=== PATIENT | male | born 1960 | race Caucasian/White ===

== ENCOUNTER 2017-12-25 13:45 | Inpatient (IN) | payer MEDICARE, OTHER ==
[~2017-12-25] VITALS: Ht 172.7 cm; Wt 100.2 kg
[~2017-12-25 13:45] MED LIST: ASPI1POW MC; CLON-570 PO; HYDR-4455 PO; SIMV5TAB6 PO
[2017-12-25] MEDS ORDERED: CARV6 PO (14:12)
[2017-12-25] MEDS ORDERED: FURO20 PO (14:12)
[2017-12-25] MEDS ORDERED: METO-558 PO (14:12)
[2017-12-25 15:03] LABS: BASOPHILS % (AUTO) 0.8 % (0.0-2.0); EOSINOPHILS % (AUTO) 0.2 % (1.0-6.0); HEMATOCRIT 40.2 % (41-53); HEMOGLOBIN 12.9 g/dL (13.5-17.5); LYMPHOCYTES # (AUTO) 1.8 K/uL (1.0-4.8); LYMPHOCYTES % (AUTO) 19.1 % (22.0-44.0); MEAN CORPUSCULAR HGB CONC 32.2 G/dL (31.0-37.0); MEAN CORPUSCULAR VOLUME 87 fL (80-100); MONOCYTES # (AUTO) 0.8 K/uL (0.1-1.0); NEUTROPHILS # (AUTO) 6.9 K/uL (1.8-7.7); NEUTROPHILS % (AUTO) 71.9 % (40.0-70.0); PLATELET COUNT (AUTO) 223 K/uL (150-450); RED BLOOD CELL COUNT(AUTO) 4.61 MIL/uL (4.50-5.90); RED CELL DISTRIBUTION WIDTH 19.8 % (11.5-14.5)
[2017-12-25 15:23] LABS: ALANINE AMINOTRANSFERASE 24 U/L (12-78); ALBUMIN 2.6 g/dL (3.4-5.0); ALKALINE PHOSPHATASE 120 U/L (46-116); ANION GAP 10 mmol/L (8-16); ASPARTATE AMINOTRANSFERASE 31 U/L (15-37); BILIRUBIN,TOTAL 2.3 mg/dL (0.1-1.0); CALCIUM, TOTAL 7.7 mg/dL (8.8-10.5); CARBON DIOXIDE 34 mmol/L (22-29); CHLORIDE 103 mmol/L (98-107); CREATININE 0.98 mg/dL (0.60-1.30); GLOMERULAR FILTR. RATE CALC > 60 mL/min (>60); GLUCOSE,RANDOM 95 mg/dL (70-110); SODIUM SERUM 147 mmol/L (136-145); TOTAL PROTEIN, SERUM 6.7 g/dL (6.4-8.2); UREA NITROGEN, BLOOD 17 mg/dL (7-18)
[2017-12-25 15:26] LABS: POTASSIUM 2.1 mmol/L (3.5-5.1)
[2017-12-25] MEDS ORDERED: DIAZEPAM 5 MG/ML 2 ML SYRINGE IVP ONE (15:30)
[2017-12-25] MEDS ORDERED: POTASSIUM CHLORIDE 20 MEQ ER TABLET PO PRN (15:45)
[2017-12-25] MEDS ORDERED: MAGNESIUM SULFATE 4 GM/WATER 100 ML IV PRN (15:45)
[2017-12-25] MEDS ORDERED: MAGNESIUM SULFATE 2 GM/WATER 50 ML IV PRN (15:45)
[2017-12-25] MEDS ORDERED: MAGNESIUM OXIDE 400 MG TABLET PO PRN (15:45)
[2017-12-25 15:50] LABS: INR 1.3 (0.9-1.1); PROTHROMBIN TIME 13.6 SEC (9.4-11.6)
[2017-12-25 16:04] LABS: AMPHET/METH SCREEN,URINE NEGATIVE (NEGATIVE); BARBITURATE SCREEN, URINE NEGATIVE (NEGATIVE); BENZODIAZEPINES SCREEN,URINE NEGATIVE (NEGATIVE); CANNABINOID SCREEN,URINE NEGATIVE (NEGATIVE); COCAINE SCREEN,URINE NEGATIVE (NEGATIVE); METHADONE SCREEN, URINE NEGATIVE (NEGATIVE); OPIATE SCREEN,URINE POSITIVE (NEGATIVE)
[2017-12-25 16:06] LABS: PHENCYCLIDINE SCREEN,URINE NEGATIVE (NEGATIVE)
[2017-12-25 16:15] LABS: B-TYPE NATRIURETIC PEPTIDE 1890 pg/mL (0-100)
[2017-12-25] MEDS: POTASSIUM CHL 10 MEQ/WATER 50 ML IV SCH ×4 (17:04→21:50)
[2017-12-25] MEDS: MULTIVITAMINS WITH MINERALS, THERAPEUTIC TABLET PO SCH (17:04)
[2017-12-25] MEDS: PANTOPRAZOLE SODIUM 40 MG DR TABLET PO SCH (17:04)
[2017-12-25] MEDS ORDERED: SODIUM CHLORIDE 0.9% 250 ML IV ONE ×2 (19:23→21:38)
[2017-12-25 20:55] VITALS: BP 142/98
[2017-12-25] MEDS: DOCUSATE SODIUM 100 MG CAPSULE PO SCH (21:00)
[2017-12-25] MEDS: ACETAMINOPHEN 325 MG TABLET PO PRN (21:20)
[2017-12-25] MEDS: LORazepam 2 MG/ML VIAL IVP PRN (21:21)
[2017-12-25] MEDS: ONDANSETRON HCL 4 MG/2 ML VIAL IVP PRN (21:26)
[2017-12-25 23:30] VITALS: BP 135/93
[2017-12-26] VITALS (11 sets, daily range): BP systolic 102–151; BP diastolic 33–85
[2017-12-26] MEDS: LORazepam 2 MG/ML VIAL IVP PRN ×3 (01:58→10:32)
[2017-12-26] MEDS ORDERED: DILTIAZEM HCL 125 MG in DEXTROSE 5%-WATER 100 ML IV SCH ×4 (02:30)
[2017-12-26] MEDS: DILTIAZEM HCL 125 MG in DEXTROSE 5%-WATER 100 ML IV PRN ×2 (03:38→10:41)
[2017-12-26] MEDS ORDERED: AMIODARONE HCL 150 MG in DEXTROSE 5%-WATER 97 ML IV ONE (04:45)
[2017-12-26] MEDS ORDERED: AMIODARONE HCL 360 MG in DEXTROSE 5%-WATER 242.8 ML IV ONE (05:00)
[2017-12-26 07:28] LABS: MAGNESIUM 1.1 mg/dL (1.80-2.40)
[2017-12-26 07:35] LABS: POTASSIUM 2.4 mmol/L (3.5-5.1)
[2017-12-26] MEDS: POTASSIUM CHL 10 MEQ/WATER 50 ML IV PRN ×4 (07:41→11:04)
[2017-12-26] MEDS ORDERED: 0.9% SODIUM CHLORIDE 5 ML NEB SOLUTION NEB ONE (08:01)
[2017-12-26] MEDS: ALBUTEROL SULFATE 2.5 MG/0.5 ML NEB SOLUTION NEB PRN (08:03)
[2017-12-26] MEDS ORDERED: FUROSEMIDE 20 MG TABLET PO SCH (09:00)
[2017-12-26] MEDS ORDERED: METOPROLOL SUCCINATE 50 MG ER TABLET PO SCH (09:00)
[2017-12-26 09:15] LABS: ABG A-A DIFF O2 97.2 mmHg (10-20.0); ABG BASE EXCESS 9.1 mmol/L (-2.0-3.0); ABG CARBOXYHEMOGLOBIN 2.2 % (0.0-1.5); ABG HCO3 31.9 mmol/L (22.0-26.0); ABG METHEMOGLOBIN 0.2 % (0.0-1.5); ABG OXYGEN CONTENT 17.1 mL/dL (15.0-23.0); ABG OXYGEN SATURATION 95.6 % (95.0-98.0); ABG OXYHEMOGLOBIN 93.3 % (94.0-100.0); ABG PCO2 44 mmHg (35-45); ABG PH 7.484 (7.35-7.450); O2 DEVICE,BLOOD GAS CANNULA (ROOM AIR); PO2, ARTERIAL BG 79.1 mmHg (84.0-92.0); SITE, BLOOD GAS RT RADIAL; SOURCE, BLOOD GAS ARTERIAL; TEMPERATURE, FAHRENHEIT, BG 98.6 FAHREN (96.0-98.6)
[2017-12-26] MEDS ORDERED: FUROSEMIDE 40 MG/4 ML VIAL IVP SCH ×2 (09:15→21:00)
[2017-12-26] MEDS: PANTOPRAZOLE SODIUM 40 MG DR TABLET PO SCH (09:50)
[2017-12-26] MEDS: DOCUSATE SODIUM 100 MG CAPSULE PO SCH ×2 (09:50→21:13)
[2017-12-26] MEDS: CARVEDILOL 6.25 MG TABLET PO SCH (09:50)
[2017-12-26] MEDS ORDERED: MethylPREDNISolone SOD SUCC 40 MG/ML VIAL ONE (09:54)
[2017-12-26] MEDS: MULTIVITAMINS WITH MINERALS, THERAPEUTIC TABLET PO SCH (10:32)
[2017-12-26] MEDS: ACETAMINOPHEN 325 MG TABLET PO PRN (10:32)
[2017-12-26] MEDS ORDERED: MethylPREDNISolone SOD SUCC 125 MG/2 ML VIAL IVP SCH (10:44)
[2017-12-26] MEDS ORDERED: MethylPREDNISolone SOD SUCC 40 MG/ML VIAL IVP ONE (11:00)
[2017-12-26] MEDS ORDERED: AMIODARONE HCL 540 MG in DEXTROSE 5%-WATER 239.2 ML IV ONE (11:00)
[2017-12-26] MEDS ORDERED: PHENYLEPHRINE 200 MG/D5%-WATER 250 ML IV PRN (13:00)
[2017-12-26] MEDS ORDERED: LORazepam 2 MG/ML VIAL IVP PRN (13:30)
[2017-12-26 14:23] LABS: CALCIUM, TOTAL 7.5 mg/dL (8.8-10.5); CREATININE 1.33 mg/dL (0.60-1.30); MAGNESIUM 1.7 mg/dL (1.80-2.40); POTASSIUM 3.2 mmol/L (3.5-5.1)
[2017-12-26] MEDS ORDERED: ChlordiazePOXIDE HCL 25 MG CAPSULE PO SCH (16:00)
[2017-12-26] MEDS: ALBUMIN HUMAN 25%-25GM/100ML 100 ML IV SCH (17:13)
[2017-12-26] MEDS: MethylPREDNISolone SOD SUCC 125 MG/2 ML VIAL IVP SCH ×2 (17:13→23:51)
[2017-12-26] MEDS: POTASSIUM CHL 10 MEQ/WATER 50 ML IV SCH ×4 (17:14→20:13)
[2017-12-26] MEDS ORDERED: DIGOXIN 250 MCG/ML 2 ML AMP IVP ONE (17:30)
[2017-12-26 18:20] LABS: CREATININE,URINE RANDOM 53.6 mg/dL (30.0-125.0)
[2017-12-26] MEDS: BUMETANIDE 0.25 MG/ML 4 ML VIAL IVP SCH (21:13)
[2017-12-26] MEDS: APIXABAN 5 MG TABLET PO SCH (21:13)
[2017-12-26] MEDS: ChlordiazePOXIDE HCL 25 MG CAPSULE PO PRN (21:56)
[2017-12-26 22:54] LABS: CALCIUM, TOTAL 7.6 mg/dL (8.8-10.5); CREATININE 1.66 mg/dL (0.60-1.30); POTASSIUM 3.8 mmol/L (3.5-5.1)
[2017-12-27] VITALS (7 sets, daily range): BP systolic 99–116; BP diastolic 59–88
[2017-12-27] MEDS: ChlordiazePOXIDE HCL 25 MG CAPSULE PO PRN ×3 (05:15→23:22)
[2017-12-27] MEDS: ALBUMIN HUMAN 25%-25GM/100ML 100 ML IV SCH ×2 (05:15→16:18)
[2017-12-27] MEDS: AMIODARONE HCL 750 MG in DEXTROSE 5%-WATER 485 ML IV SCH (05:23)
[2017-12-27] MEDS: MethylPREDNISolone SOD SUCC 125 MG/2 ML VIAL IVP SCH ×3 (05:33→23:22)
[2017-12-27 05:36] LABS: MAGNESIUM 1.9 mg/dL (1.80-2.40)
[2017-12-27] MEDS: ALBUTEROL SULFATE 2.5 MG/0.5 ML NEB SOLUTION NEB PRN (08:00)
[2017-12-27] MEDS: ChlordiazePOXIDE HCL 25 MG CAPSULE PO SCH ×4 (08:00→20:03)
[2017-12-27] MEDS: APIXABAN 5 MG TABLET PO SCH (08:50)
[2017-12-27] MEDS: BUMETANIDE 0.25 MG/ML 4 ML VIAL IVP SCH (08:50)
[2017-12-27] MEDS: CARVEDILOL 6.25 MG TABLET PO SCH (08:50)
[2017-12-27] MEDS: PANTOPRAZOLE SODIUM 40 MG DR TABLET PO SCH (08:51)
[2017-12-27] MEDS: MULTIVITAMINS WITH MINERALS, THERAPEUTIC TABLET PO SCH (08:51)
[2017-12-27] MEDS: DOCUSATE SODIUM 100 MG CAPSULE PO SCH ×2 (08:51→20:03)
[2017-12-27] MEDS ORDERED: SODIUM CHLORIDE 0.9% 1,000 ML IV SCH (10:15)
[2017-12-27 10:20] LABS: BILIRUBIN,TOTAL 4.3 mg/dL (0.1-1.0); CALCIUM, TOTAL 7.5 mg/dL (8.8-10.5); CREATININE 1.93 mg/dL (0.60-1.30); TOTAL PROTEIN, SERUM 6.8 g/dL (6.4-8.2)
[2017-12-27] MEDS ORDERED: HEPARIN SODIUM,PORCINE 1,000 UNITS/ML VIAL IVP ONE (12:45)
[2017-12-27] MEDS ORDERED: HEPARIN SODIUM,PORCINE 1,000 UNITS/ML VIAL IV ONE (12:45)
[2017-12-27] MEDS ORDERED: HEPARIN SODIUM,PORCINE 5,000 UNITS/ML VIAL ONE (12:47)
[2017-12-27] MEDS ORDERED: MORPHINE SULFATE 2 MG/ML SYRINGE IVP ONE (13:00)
[2017-12-27] MEDS ORDERED: SODIUM CHLORIDE 0.9% 500 ML IV ONE (13:55)
[2017-12-27] MEDS: ONDANSETRON HCL 4 MG/2 ML VIAL IVP PRN (18:55)
[2017-12-27] MEDS: ACETAMINOPHEN 325 MG TABLET PO PRN (20:03)
[2017-12-27] MEDS: APIXABAN 2.5 MG TABLET PO SCH (20:03)
[2017-12-28] VITALS (7 sets, daily range): BP systolic 105–150; BP diastolic 77–96
[2017-12-28 04:34] LABS: BASOPHILS % (AUTO) 0.3 % (0.0-2.0); EOSINOPHILS % (AUTO) 0 % (1.0-6.0); HEMATOCRIT 40.9 % (41-53); HEMOGLOBIN 13.1 g/dL (13.5-17.5); LYMPHOCYTES # (AUTO) 1.3 K/uL (1.0-4.8); LYMPHOCYTES % (AUTO) 8.4 % (22.0-44.0); MEAN CORPUSCULAR HEMOGLOBIN 28.3 pg (26.0-34.0); MEAN CORPUSCULAR HGB CONC 32.1 G/dL (31.0-37.0); MEAN CORPUSCULAR VOLUME 88 fL (80-100); MONOCYTES # (AUTO) 0.4 K/uL (0.1-1.0); MONOCYTES % (AUTO) 2.7 % (2.0-9.0); NEUTROPHILS # (AUTO) 14.1 K/uL (1.8-7.7); PLATELET COUNT (AUTO) 230 K/uL (150-450); RED BLOOD CELL COUNT(AUTO) 4.63 MIL/uL (4.50-5.90); RED CELL DISTRIBUTION WIDTH 19.7 % (11.5-14.5)
[2017-12-28 04:36] LABS: NEUTROPHILS % (AUTO) 88.6 % (40.0-70.0)
[2017-12-28] MEDS: ChlordiazePOXIDE HCL 25 MG CAPSULE PO PRN (04:37)
[2017-12-28] MEDS: ALBUMIN HUMAN 25%-25GM/100ML 100 ML IV SCH (04:38)
[2017-12-28] MEDS: AMIODARONE HCL 750 MG in DEXTROSE 5%-WATER 485 ML IV SCH (04:39)
[2017-12-28 04:51] LABS: ALBUMIN 3.5 g/dL (3.4-5.0); BILIRUBIN,TOTAL 4.2 mg/dL (0.1-1.0); CALCIUM, TOTAL 7.5 mg/dL (8.8-10.5); CREATININE 2.39 mg/dL (0.60-1.30); DIGOXIN 0.43 ng/mL (0.90-2.00); POTASSIUM 3.8 mmol/L (3.5-5.1); TOTAL PROTEIN, SERUM 6.7 g/dL (6.4-8.2)
[2017-12-28 04:59] LABS: PLATELET MORPHOLOGY COMMENT LARGE PLTS PRESENT
[2017-12-28] MEDS ORDERED: SODIUM CHLORIDE 0.9% 250 ML IV ONE (05:15)
[2017-12-28] MEDS: PANTOPRAZOLE SODIUM 40 MG DR TABLET PO SCH (08:21)
[2017-12-28] MEDS: CARVEDILOL 6.25 MG TABLET PO SCH (08:21)
[2017-12-28] MEDS: MethylPREDNISolone SOD SUCC 125 MG/2 ML VIAL IVP SCH ×3 (08:21→23:29)
[2017-12-28] MEDS: ChlordiazePOXIDE HCL 25 MG CAPSULE PO SCH ×4 (08:21→19:43)
[2017-12-28] MEDS: MULTIVITAMINS WITH MINERALS, THERAPEUTIC TABLET PO SCH (08:22)
[2017-12-28] MEDS: APIXABAN 2.5 MG TABLET PO SCH ×2 (08:22→19:42)
[2017-12-28] MEDS: DOCUSATE SODIUM 100 MG CAPSULE PO SCH ×2 (08:22→19:42)
[2017-12-28] MEDS ORDERED: DIGOXIN 250 MCG/ML 2 ML AMP IVP ONE (09:30)
[2017-12-28] MEDS: AMIODARONE HCL 200 MG TABLET PO SCH ×2 (09:44→16:00)
[2017-12-28] MEDS: LORazepam 2 MG/ML VIAL IVP PRN ×2 (15:35→19:43)
[2017-12-29 05:00] VITALS: BP 113/86
[2017-12-29 06:35] LABS: CALCIUM, TOTAL 7.5 mg/dL (8.8-10.5); CREATININE 1.98 mg/dL (0.60-1.30); POTASSIUM 3.6 mmol/L (3.5-5.1)
[2017-12-29] MEDS ORDERED: ChlordiazePOXIDE HCL 10 MG CAPSULE PO PRN (07:00)
[2017-12-29 07:58] VITALS: BP 118/88
[2017-12-29] MEDS: MethylPREDNISolone SOD SUCC 125 MG/2 ML VIAL IVP SCH ×3 (08:00→22:51)
[2017-12-29] MEDS ORDERED: ChlordiazePOXIDE HCL 10 MG CAPSULE PO SCH (09:00)
[2017-12-29] MEDS: DOCUSATE SODIUM 100 MG CAPSULE PO SCH ×2 (09:00→20:40)
[2017-12-29] MEDS: APIXABAN 2.5 MG TABLET PO SCH ×2 (09:00→20:41)
[2017-12-29] MEDS: PANTOPRAZOLE SODIUM 40 MG DR TABLET PO SCH (09:24)
[2017-12-29] MEDS: CARVEDILOL 6.25 MG TABLET PO SCH (09:24)
[2017-12-29] MEDS: MULTIVITAMINS WITH MINERALS, THERAPEUTIC TABLET PO SCH (09:24)
[2017-12-29] MEDS: AMIODARONE HCL 200 MG TABLET PO SCH ×4 (09:24→22:54)
[2017-12-29 11:39] VITALS: BP 122/82
[2017-12-29] MEDS ORDERED: SODIUM CHLORIDE 0.9% 1,000 ML IV ONE (12:59)
[2017-12-29] MEDS ORDERED: HEPARIN SODIUM,PORCINE 1,000 UNITS/ML VIAL IVP ONE ×2 (17:15)
[2017-12-29] MEDS: NICOTINE 21 MG/24 HOUR PATCH TD SCH (17:54)
[2017-12-29] MEDS: ACETAMINOPHEN 325 MG TABLET PO PRN ×2 (18:09→22:54)
[2017-12-29 18:24] VITALS: BP 115/80
[2017-12-29] MEDS: LORazepam 2 MG/ML VIAL IVP PRN ×2 (18:45→22:50)
[2017-12-29 20:06] VITALS: BP 111/78
[2017-12-29 23:00] VITALS: BP 119/5
[2017-12-30 00:04] VITALS: BP 127/87
[2017-12-30 04:30] VITALS: BP 126/94
[2017-12-30] MEDS: LORazepam 2 MG/ML VIAL IVP PRN ×4 (05:29→22:16)
[2017-12-30 06:13] LABS: CALCIUM, TOTAL 8.2 mg/dL (8.8-10.5); CREATININE 1.75 mg/dL (0.60-1.30); POTASSIUM 3.9 mmol/L (3.5-5.1)
[2017-12-30] MEDS ORDERED: ChlordiazePOXIDE HCL 10 MG CAPSULE PO PRN (07:00)
[2017-12-30 07:28] VITALS: BP 136/94
[2017-12-30] MEDS: CARVEDILOL 6.25 MG TABLET PO SCH (08:42)
[2017-12-30] MEDS: MethylPREDNISolone SOD SUCC 125 MG/2 ML VIAL IVP SCH ×2 (08:42→15:54)
[2017-12-30] MEDS: AMIODARONE HCL 200 MG TABLET PO SCH ×2 (08:42→15:55)
[2017-12-30] MEDS: MULTIVITAMINS WITH MINERALS, THERAPEUTIC TABLET PO SCH (08:43)
[2017-12-30] MEDS: PANTOPRAZOLE SODIUM 40 MG DR TABLET PO SCH (08:43)
[2017-12-30] MEDS: DOCUSATE SODIUM 100 MG CAPSULE PO SCH ×2 (08:43→21:23)
[2017-12-30] MEDS: APIXABAN 2.5 MG TABLET PO SCH ×2 (08:44→21:23)
[2017-12-30] MEDS: NICOTINE 21 MG/24 HOUR PATCH TD SCH (08:44)
[2017-12-30 11:13] VITALS: BP 127/90
[2017-12-30 12:08] LABS: ALPHA-1 (IFE & PEP) 0.3 g/dL (0.0-0.4); GAMMA GLOBULINS (IFE & ELP) 0.7 g/dL (0.4-1.8); IGM (IMMUNOFIXATION) 65 mg/dL (20-172)
[2017-12-30] MEDS: ACETAMINOPHEN 325 MG TABLET PO PRN ×2 (13:17→21:23)
[2017-12-30 13:35] LABS: BILIRUBIN,URINE PRELIM. POSITIVE (NEGATIVE); GLUCOSE, URINE (UA) 100 mg/dL (NEGATIVE); KETONES,URINE TRACE mg/dL (NEGATIVE); LEUKOCYTE ESTERASE ,URINE LARGE (NEGATIVE); NITRATE,URINE POSITIVE (NEGATIVE); OCCULT BLOOD,URINE LARGE (NEGATIVE); PH,URINE 8.5 (5.0-8.0); PROTEIN,URINE SEE CONFIRM (NEGATIVE)
[2017-12-30 13:36] LABS: APPEARANCE,URINE TURBID (CLEAR); SULFOSALICYLIC ACID,URINE 3+ (Negative)
[2017-12-30 13:37] LABS: BACTERIA,URINE Many /HPF (None Seen); TRIPLE PHOSPHATE CRYSTAL,UR Many /LPF (None Seen)
[2017-12-30 15:02] VITALS: BP 119/78
[2017-12-30] MEDS ORDERED: HEPARIN SODIUM,PORCINE 1,000 UNITS/ML VIAL IVP ONE ×2 (16:37→16:46)
[2017-12-30] MEDS: CefTRIAXone SODIUM 1 GM in DEXTROSE 5%-WATER 10 ML IV SCH (19:49)
[2017-12-30 20:05] VITALS: BP 137/92
[2017-12-31 00:10] VITALS: BP 137/99
[2017-12-31] MEDS: LORazepam 2 MG/ML VIAL IVP PRN ×2 (03:31→08:21)
[2017-12-31 04:10] VITALS: BP 140/100
[2017-12-31] MEDS ORDERED: DIGOXIN 250 MCG/ML 2 ML AMP IVP ONE (08:00)
[2017-12-31] MEDS: APIXABAN 2.5 MG TABLET PO SCH ×2 (08:17→20:56)
[2017-12-31] MEDS: MULTIVITAMINS WITH MINERALS, THERAPEUTIC TABLET PO SCH (08:17)
[2017-12-31] MEDS: PANTOPRAZOLE SODIUM 40 MG DR TABLET PO SCH (08:17)
[2017-12-31] MEDS: NICOTINE 21 MG/24 HOUR PATCH TD SCH (08:17)
[2017-12-31] MEDS: DOCUSATE SODIUM 100 MG CAPSULE PO SCH ×2 (08:18→20:56)
[2017-12-31] MEDS: MethylPREDNISolone SOD SUCC 125 MG/2 ML VIAL IVP SCH ×4 (08:32→23:58)
[2017-12-31] MEDS: AMIODARONE HCL 200 MG TABLET PO SCH ×4 (08:36→23:57)
[2017-12-31] MEDS: CARVEDILOL 12.5 MG TABLET PO SCH (08:36)
[2017-12-31 08:39] VITALS: BP 156/128
[2017-12-31 09:33] LABS: CALCIUM, TOTAL 8.6 mg/dL (8.8-10.5); CREATININE 1.77 mg/dL (0.60-1.30); POTASSIUM 4.2 mmol/L (3.5-5.1)
[2017-12-31 11:01] VITALS: BP 132/90
[2017-12-31] MEDS ORDERED: SODIUM CHLORIDE 0.9% 250 ML IV ONE (14:01)
[2017-12-31 14:55] VITALS: BP 139/108
[2017-12-31] MEDS ORDERED: DEXTROSE 50%-WATER 25 GM/50 ML SYRINGE IVP PRN (17:15)
[2017-12-31] MEDS ORDERED: GuaiFENesin/D-METHORPHAN [SUGAR-FREE] 200-20MG/10 ML SYRUP UDCUP PO PRN (17:15)
[2017-12-31] MEDS: CefTRIAXone SODIUM 1 GM in DEXTROSE 5%-WATER 10 ML IV SCH (17:37)
[2017-12-31 20:04] VITALS: BP 149/115
[2017-12-31 20:58] LABS: GLUCOMETER DEV NAME(LOC) 5N 1P; GLUCOSE,POINT OF CARE 329 MG/DL (70-110)
[2017-12-31] MEDS: INSULIN LISPRO 100 UNITS/ML SQ PRN (20:58)
[2018-01-01] VITALS (7 sets, daily range): BP systolic 133–148; BP diastolic 88–108
[2018-01-01] MEDS: LORazepam 2 MG/ML VIAL IVP PRN ×3 (01:27→23:10)
[2018-01-01 05:39] LABS: GLUCOMETER DEV NAME(LOC) 5S 1M; GLUCOSE,POINT OF CARE 262 MG/DL (70-110)
[2018-01-01] MEDS: INSULIN LISPRO 100 UNITS/ML SQ PRN ×3 (05:58→21:15)
[2018-01-01 06:13] LABS: BASOPHILS % (AUTO) 0.2 % (0.0-2.0); EOSINOPHILS % (AUTO) 0 % (1.0-6.0); HEMATOCRIT 40.7 % (41-53); HEMOGLOBIN 12.9 g/dL (13.5-17.5); LYMPHOCYTES # (AUTO) 0.4 K/uL (1.0-4.8); LYMPHOCYTES % (AUTO) 3.1 % (22.0-44.0); MEAN CORPUSCULAR HEMOGLOBIN 27.8 pg (26.0-34.0); MEAN CORPUSCULAR HGB CONC 31.8 G/dL (31.0-37.0); MEAN CORPUSCULAR VOLUME 87 fL (80-100); MONOCYTES # (AUTO) 0.4 K/uL (0.1-1.0); MONOCYTES % (AUTO) 2.9 % (2.0-9.0); NEUTROPHILS # (AUTO) 12.7 K/uL (1.8-7.7); PLATELET COUNT (AUTO) 210 K/uL (150-450); RED BLOOD CELL COUNT(AUTO) 4.66 MIL/uL (4.50-5.90); RED CELL DISTRIBUTION WIDTH 19.5 % (11.5-14.5)
[2018-01-01 06:39] LABS: ALBUMIN 3.3 g/dL (3.4-5.0); CALCIUM, TOTAL 8.9 mg/dL (8.8-10.5); CREATININE 1.81 mg/dL (0.60-1.30); POTASSIUM 4.7 mmol/L (3.5-5.1); TOTAL PROTEIN, SERUM 6.7 g/dL (6.4-8.2)
[2018-01-01 06:47] LABS: NEUTROPHILS % (AUTO) 93.8 % (40.0-70.0)
[2018-01-01] MEDS: PANTOPRAZOLE SODIUM 40 MG DR TABLET PO SCH (08:30)
[2018-01-01] MEDS: MULTIVITAMINS WITH MINERALS, THERAPEUTIC TABLET PO SCH (08:30)
[2018-01-01] MEDS: MethylPREDNISolone SOD SUCC 125 MG/2 ML VIAL IVP SCH ×3 (08:30→23:10)
[2018-01-01] MEDS: DOCUSATE SODIUM 100 MG CAPSULE PO SCH ×2 (08:30→21:00)
[2018-01-01] MEDS: AMIODARONE HCL 200 MG TABLET PO SCH ×3 (08:31→23:08)
[2018-01-01] MEDS: CARVEDILOL 12.5 MG TABLET PO SCH (08:31)
[2018-01-01] MEDS: NICOTINE 21 MG/24 HOUR PATCH TD SCH (08:33)
[2018-01-01] MEDS ORDERED: 0.9% SODIUM CHLORIDE 5 ML NEB SOLUTION NEB ONE (08:50)
[2018-01-01] MEDS: ALBUTEROL SULFATE 2.5 MG/0.5 ML NEB SOLUTION NEB PRN (08:52)
[2018-01-01] MEDS: ACETAMINOPHEN 325 MG TABLET PO PRN ×2 (08:53→18:31)
[2018-01-01] MEDS: FUROSEMIDE 40 MG/4 ML VIAL IVP SCH (08:55)
[2018-01-01] MEDS: APIXABAN 2.5 MG TABLET PO SCH ×3 (09:48→21:57)
[2018-01-01] MEDS: CefTRIAXone SODIUM 1 GM in DEXTROSE 5%-WATER 10 ML IV SCH (16:55)
[2018-01-02] MEDS: LORazepam 2 MG/ML VIAL IVP PRN ×2 (03:10→21:55)
[2018-01-02 05:47] VITALS: BP 149/99
[2018-01-02] MEDS: INSULIN LISPRO 100 UNITS/ML SQ PRN ×4 (05:53→23:29)
[2018-01-02 06:18] LABS: CALCIUM, TOTAL 8.5 mg/dL (8.8-10.5); CREATININE 1.86 mg/dL (0.60-1.30); POTASSIUM 4.5 mmol/L (3.5-5.1)
[2018-01-02 07:19] VITALS: BP 143/89
[2018-01-02] MEDS: AMIODARONE HCL 200 MG TABLET PO SCH ×3 (08:00→15:12)
[2018-01-02] MEDS: MethylPREDNISolone SOD SUCC 125 MG/2 ML VIAL IVP SCH ×3 (08:00→15:12)
[2018-01-02] MEDS: MULTIVITAMINS WITH MINERALS, THERAPEUTIC TABLET PO SCH ×2 (08:57→09:00)
[2018-01-02] MEDS: PANTOPRAZOLE SODIUM 40 MG DR TABLET PO SCH ×2 (08:57→09:00)
[2018-01-02] MEDS: CARVEDILOL 12.5 MG TABLET PO SCH ×2 (08:57→09:00)
[2018-01-02] MEDS: DOCUSATE SODIUM 100 MG CAPSULE PO SCH ×3 (08:57→20:15)
[2018-01-02] MEDS: FUROSEMIDE 40 MG/4 ML VIAL IVP SCH ×2 (08:57→09:00)
[2018-01-02] MEDS: APIXABAN 2.5 MG TABLET PO SCH ×3 (08:58→20:15)
[2018-01-02] MEDS: NICOTINE 21 MG/24 HOUR PATCH TD SCH (09:03)
[2018-01-02 11:47] VITALS: BP 117/77
[2018-01-02] MEDS ORDERED: DIGOXIN 250 MCG/ML 2 ML AMP IVP ONE (13:45)
[2018-01-02 15:24] LABS: GLUCOMETER DEV NAME(LOC) 5N 1P; GLUCOSE,POINT OF CARE 315 MG/DL (70-110)
[2018-01-02 15:24] LABS: GLUCOMETER DEV NAME(LOC) 5N 1P; GLUCOSE,POINT OF CARE 291 MG/DL (70-110)
[2018-01-02 15:36] VITALS: BP 145/106
[2018-01-02] MEDS: CefTRIAXone SODIUM 1 GM in DEXTROSE 5%-WATER 10 ML IV SCH (17:08)
[2018-01-02 19:51] VITALS: BP 135/92
[2018-01-02] MEDS ORDERED: FUROSEMIDE 40 MG/4 ML VIAL IVP SCH (21:00)
[2018-01-03] MEDS: MethylPREDNISolone SOD SUCC 125 MG/2 ML VIAL IVP SCH ×3 (00:01→17:24)
[2018-01-03] MEDS: AMIODARONE HCL 200 MG TABLET PO SCH ×4 (00:01→23:49)
[2018-01-03 00:30] VITALS: BP 130/78
[2018-01-03] MEDS: LORazepam 2 MG/ML VIAL IM PRN ×2 (02:01→07:59)
[2018-01-03 07:44] LABS: CALCIUM, TOTAL 8.8 mg/dL (8.8-10.5); CREATININE 2.13 mg/dL (0.60-1.30); POTASSIUM 4.9 mmol/L (3.5-5.1)
[2018-01-03 07:54] VITALS: BP 114/111
[2018-01-03] MEDS: HALOPERIDOL LACTATE 5 MG/ML VIAL IM PRN ×2 (07:59→22:39)
[2018-01-03] MEDS: NICOTINE 21 MG/24 HOUR PATCH TD SCH (08:37)
[2018-01-03] MEDS: CARVEDILOL 12.5 MG TABLET PO SCH (08:38)
[2018-01-03] MEDS: APIXABAN 2.5 MG TABLET PO SCH ×2 (08:38→21:19)
[2018-01-03] MEDS: PANTOPRAZOLE SODIUM 40 MG DR TABLET PO SCH (08:38)
[2018-01-03] MEDS: MULTIVITAMINS WITH MINERALS, THERAPEUTIC TABLET PO SCH (08:38)
[2018-01-03] MEDS: DOCUSATE SODIUM 100 MG CAPSULE PO SCH ×2 (08:38→21:21)
[2018-01-03] MEDS: LORazepam 2 MG/ML VIAL IVP PRN ×2 (10:19→21:39)
[2018-01-03 12:15] VITALS: BP 153/106
[2018-01-03] MEDS ORDERED: LACTULOSE 20 GM/30 ML SOLUTION UDCUP PO ONE ×2 (12:15→17:15)
[2018-01-03 12:20] LABS: GLUCOMETER DEV NAME(LOC) 5N 2S; GLUCOSE,POINT OF CARE 373 MG/DL (70-110)
[2018-01-03] MEDS: INSULIN LISPRO 100 UNITS/ML SQ PRN ×3 (13:17→21:18)
[2018-01-03 13:54] LABS: GLUCOMETER DEV NAME(LOC) 5S 1M; GLUCOSE,POINT OF CARE 291 MG/DL (70-110)
[2018-01-03 13:54] LABS: GLUCOMETER DEV NAME(LOC) 5S 1M; GLUCOSE,POINT OF CARE 225 MG/DL (70-110)
[2018-01-03 13:54] LABS: GLUCOMETER DEV NAME(LOC) 5S 1M; GLUCOSE,POINT OF CARE 343 MG/DL (70-110)
[2018-01-03 13:54] LABS: GLUCOMETER DEV NAME(LOC) 5S 1M; GLUCOSE,POINT OF CARE 290 MG/DL (70-110)
[2018-01-03 13:55] LABS: GLUCOMETER DEV NAME(LOC) 5S 1M; GLUCOSE,POINT OF CARE 210 MG/DL (70-110)
[2018-01-03] MEDS: BISACODYL 10 MG RECTAL RECTAL SUPPOSITORY PR PRN (14:54)
[2018-01-03 16:34] VITALS: BP 155/97
[2018-01-03] MEDS: CefTRIAXone SODIUM 1 GM in DEXTROSE 5%-WATER 10 ML IV SCH (17:24)
[2018-01-03 20:11] LABS: GLUCOMETER DEV NAME(LOC) 5S 2Q; GLUCOSE,POINT OF CARE 261 MG/DL (70-110)
[2018-01-03 20:11] LABS: GLUCOMETER DEV NAME(LOC) 5S 2Q; GLUCOSE,POINT OF CARE 304 MG/DL (70-110)
[2018-01-03 20:30] VITALS: BP 119/57
[2018-01-03] MEDS: MethylPREDNISolone SOD SUCC 40 MG/ML VIAL IVP SCH (23:49)
[2018-01-04] VITALS (7 sets, daily range): BP systolic 113–158; BP diastolic 77–110
[2018-01-04 01:34] LABS: GLUCOMETER DEV NAME(LOC) 5S 1M; GLUCOSE,POINT OF CARE 284 MG/DL (70-110)
[2018-01-04] MEDS: INSULIN LISPRO 100 UNITS/ML SQ PRN ×3 (05:45→21:17)
[2018-01-04 06:02] LABS: CALCIUM, TOTAL 8.6 mg/dL (8.8-10.5); CREATININE 1.89 mg/dL (0.60-1.30)
[2018-01-04 06:06] LABS: POTASSIUM 6.7 mmol/L (3.5-5.1)
[2018-01-04] MEDS ORDERED: BUMETANIDE 0.25 MG/ML 4 ML VIAL IVP ONE (06:30)
[2018-01-04] MEDS ORDERED: CALCIUM GLUCONATE 100 MG/ML 10 ML IVP ONE (06:30)
[2018-01-04] MEDS: DOCUSATE SODIUM 100 MG CAPSULE PO SCH ×2 (07:47→21:10)
[2018-01-04] MEDS: CARVEDILOL 12.5 MG TABLET PO SCH (07:47)
[2018-01-04] MEDS: AMIODARONE HCL 200 MG TABLET PO SCH ×3 (07:47→23:18)
[2018-01-04] MEDS: PANTOPRAZOLE SODIUM 40 MG DR TABLET PO SCH (07:47)
[2018-01-04] MEDS: MULTIVITAMINS WITH MINERALS, THERAPEUTIC TABLET PO SCH (07:47)
[2018-01-04] MEDS: MethylPREDNISolone SOD SUCC 40 MG/ML VIAL IVP SCH (07:47)
[2018-01-04] MEDS: APIXABAN 2.5 MG TABLET PO SCH ×2 (07:48→21:10)
[2018-01-04] MEDS: NICOTINE 21 MG/24 HOUR PATCH TD SCH (07:48)
[2018-01-04] MEDS ORDERED: SODIUM POLYSTYRENE SULFONATE 15 GM/60 ML SUSPENSION BOTTLE PO ONE (09:00)
[2018-01-04] MEDS ORDERED: INSULIN REGULAR, HUMAN 100 UNITS/ML IVP ONE (09:15)
[2018-01-04] MEDS: ACETAMINOPHEN 325 MG TABLET PO PRN ×2 (11:36→17:27)
[2018-01-04 11:50] LABS: CALCIUM, TOTAL 8.8 mg/dL (8.8-10.5); CREATININE 2.03 mg/dL (0.60-1.30); POTASSIUM 4.6 mmol/L (3.5-5.1)
[2018-01-04] MEDS: PredniSONE 20 MG TABLET PO SCH (16:30)
[2018-01-04] MEDS: CefTRIAXone SODIUM 1 GM in DEXTROSE 5%-WATER 10 ML IV SCH (17:28)
[2018-01-04] MEDS: HYDROCODONE/ACETAMINOPHEN 5-325 MG TABLET PO PRN (21:11)
[2018-01-05] MEDS: HYDROCODONE/ACETAMINOPHEN 5-325 MG TABLET PO PRN ×2 (03:15→20:16)
[2018-01-05] MEDS: MAGNESIUM HYDROXIDE SUSPENSION 30 ML UDCUP PO PRN (05:53)
[2018-01-05] MEDS: INSULIN LISPRO 100 UNITS/ML SQ PRN ×4 (05:55→20:18)
[2018-01-05 06:05] LABS: GLUCOMETER DEV NAME(LOC) 5S 2Q; GLUCOSE,POINT OF CARE 297 MG/DL (70-110)
[2018-01-05 06:05] LABS: GLUCOMETER DEV NAME(LOC) 5S 1M; GLUCOSE,POINT OF CARE 271 MG/DL (70-110)
[2018-01-05 06:05] LABS: GLUCOMETER DEV NAME(LOC) 5S 2Q; GLUCOSE,POINT OF CARE 278 MG/DL (70-110)
[2018-01-05 06:05] LABS: GLUCOMETER DEV NAME(LOC) 5S 2Q; GLUCOSE,POINT OF CARE 314 MG/DL (70-110)
[2018-01-05 06:08] VITALS: BP 147/99
[2018-01-05 06:54] LABS: GLUCOMETER DEV NAME(LOC) 5N 1P; GLUCOSE,POINT OF CARE 314 MG/DL (70-110)
[2018-01-05 07:51] VITALS: BP 140/92
[2018-01-05] MEDS ORDERED: INSULIN GLARGINE,HUM.REC.ANLOG 100 UNITS/ML SQ ONE (08:30)
[2018-01-05] MEDS: NICOTINE 21 MG/24 HOUR PATCH TD SCH (08:53)
[2018-01-05] MEDS: AMIODARONE HCL 200 MG TABLET PO SCH ×3 (08:53→23:02)
[2018-01-05] MEDS: DOCUSATE SODIUM 100 MG CAPSULE PO SCH ×2 (08:53→20:15)
[2018-01-05] MEDS: PANTOPRAZOLE SODIUM 40 MG DR TABLET PO SCH (08:53)
[2018-01-05] MEDS: MULTIVITAMINS WITH MINERALS, THERAPEUTIC TABLET PO SCH (08:53)
[2018-01-05] MEDS: CARVEDILOL 12.5 MG TABLET PO SCH (08:54)
[2018-01-05] MEDS: PredniSONE 20 MG TABLET PO SCH (08:54)
[2018-01-05] MEDS: APIXABAN 2.5 MG TABLET PO SCH ×2 (08:54→20:15)
[2018-01-05 09:16] LABS: BASOPHILS % (AUTO) 0.2 % (0.0-2.0); EOSINOPHILS % (AUTO) 0 % (1.0-6.0); HEMOGLOBIN 13.4 g/dL (13.5-17.5); LYMPHOCYTES # (AUTO) 0.8 K/uL (1.0-4.8); LYMPHOCYTES % (AUTO) 5.7 % (22.0-44.0); MEAN CORPUSCULAR HEMOGLOBIN 27.3 pg (26.0-34.0); MEAN CORPUSCULAR HGB CONC 31.3 G/dL (31.0-37.0); MEAN CORPUSCULAR VOLUME 87 fL (80-100); MONOCYTES # (AUTO) 0.7 K/uL (0.1-1.0); MONOCYTES % (AUTO) 4.7 % (2.0-9.0); NEUTROPHILS # (AUTO) 12.3 K/uL (1.8-7.7); PLATELET COUNT (AUTO) 197 K/uL (150-450); RED BLOOD CELL COUNT(AUTO) 4.91 MIL/uL (4.50-5.90); RED CELL DISTRIBUTION WIDTH 19.5 % (11.5-14.5)
[2018-01-05 09:18] LABS: NEUTROPHILS % (AUTO) 89.4 % (40.0-70.0)
[2018-01-05 09:24] LABS: CALCIUM, TOTAL 8.6 mg/dL (8.8-10.5); CREATININE 1.81 mg/dL (0.60-1.30); POTASSIUM 3.9 mmol/L (3.5-5.1)
[2018-01-05 09:29] LABS: ALBUMIN 3.2 g/dL (3.4-5.0); BILIRUBIN,TOTAL 2.1 mg/dL (0.1-1.0); TOTAL PROTEIN, SERUM 6.4 g/dL (6.4-8.2)
[2018-01-05 11:17] VITALS: BP 136/94
[2018-01-05 14:55] VITALS: BP 127/83
[2018-01-05] MEDS: FUROSEMIDE 40 MG/4 ML VIAL IVP SCH ×2 (16:54→23:02)
[2018-01-05] MEDS: CefTRIAXone SODIUM 1 GM in DEXTROSE 5%-WATER 10 ML IV SCH (17:27)
[2018-01-05 19:22] VITALS: BP 120/65
[2018-01-05] MEDS: INSULIN GLARGINE,HUM.REC.ANLOG 100 UNITS/ML SQ SCH (20:17)
[2018-01-05 22:04] LABS: GLUCOMETER DEV NAME(LOC) 5N 1P; GLUCOSE,POINT OF CARE 305 MG/DL (70-110)
[2018-01-05 23:01] VITALS: BP 125/87
[2018-01-06 03:56] VITALS: BP 128/88
[2018-01-06 04:14] LABS: GLUCOMETER DEV NAME(LOC) 5S 1M; GLUCOSE,POINT OF CARE 231 MG/DL (70-110)
[2018-01-06 04:14] LABS: GLUCOMETER DEV NAME(LOC) 5S 1M; GLUCOSE,POINT OF CARE 336 MG/DL (70-110)
[2018-01-06 06:17] LABS: BASOPHILS % (AUTO) 0.1 % (0.0-2.0); EOSINOPHILS % (AUTO) 0 % (1.0-6.0); HEMATOCRIT 39.4 % (41-53); HEMOGLOBIN 12.6 g/dL (13.5-17.5); LYMPHOCYTES # (AUTO) 0.8 K/uL (1.0-4.8); LYMPHOCYTES % (AUTO) 5.8 % (22.0-44.0); MEAN CORPUSCULAR HEMOGLOBIN 27.7 pg (26.0-34.0); MEAN CORPUSCULAR HGB CONC 31.9 G/dL (31.0-37.0); MEAN CORPUSCULAR VOLUME 87 fL (80-100); MONOCYTES # (AUTO) 0.7 K/uL (0.1-1.0); MONOCYTES % (AUTO) 5.2 % (2.0-9.0); NEUTROPHILS # (AUTO) 12.6 K/uL (1.8-7.7); NEUTROPHILS % (AUTO) 88.9 % (40.0-70.0); PLATELET COUNT (AUTO) 171 K/uL (150-450); RED BLOOD CELL COUNT(AUTO) 4.54 MIL/uL (4.50-5.90); RED CELL DISTRIBUTION WIDTH 19.2 % (11.5-14.5)
[2018-01-06 06:39] LABS: ALBUMIN 2.7 g/dL (3.4-5.0); BILIRUBIN,TOTAL 1.5 mg/dL (0.1-1.0); CALCIUM, TOTAL 8.3 mg/dL (8.8-10.5); CREATININE 1.45 mg/dL (0.60-1.30); POTASSIUM 3.4 mmol/L (3.5-5.1); TOTAL PROTEIN, SERUM 5.7 g/dL (6.4-8.2)
[2018-01-06 07:31] VITALS: BP 150/89
[2018-01-06] MEDS: NICOTINE 21 MG/24 HOUR PATCH TD SCH (08:16)
[2018-01-06] MEDS: APIXABAN 2.5 MG TABLET PO SCH ×2 (08:16→21:13)
[2018-01-06] MEDS: AMIODARONE HCL 200 MG TABLET PO SCH ×3 (08:17→23:50)
[2018-01-06] MEDS: DOCUSATE SODIUM 100 MG CAPSULE PO SCH ×2 (08:17→21:13)
[2018-01-06] MEDS: PredniSONE 20 MG TABLET PO SCH (08:17)
[2018-01-06] MEDS: CARVEDILOL 12.5 MG TABLET PO SCH (08:17)
[2018-01-06] MEDS: MULTIVITAMINS WITH MINERALS, THERAPEUTIC TABLET PO SCH (08:18)
[2018-01-06] MEDS: PANTOPRAZOLE SODIUM 40 MG DR TABLET PO SCH (08:18)
[2018-01-06] MEDS: FUROSEMIDE 40 MG/4 ML VIAL IVP SCH ×2 (08:19→21:13)
[2018-01-06] MEDS: POTASSIUM CHLORIDE 20 MEQ ER TABLET PO ONE ×2 (11:34→15:35)
[2018-01-06 11:43] VITALS: BP 117/66
[2018-01-06] MEDS ORDERED: DIGOXIN 250 MCG/ML 2 ML AMP IVP ONE (13:30)
[2018-01-06] MEDS: BISACODYL 10 MG RECTAL RECTAL SUPPOSITORY PR PRN (13:51)
[2018-01-06 16:04] VITALS: BP 116/70
[2018-01-06] MEDS: INSULIN LISPRO 100 UNITS/ML SQ PRN ×2 (18:11→21:11)
[2018-01-06] MEDS: CefTRIAXone SODIUM 1 GM in DEXTROSE 5%-WATER 10 ML IV SCH (18:11)
[2018-01-06 20:05] LABS: GLUCOMETER DEV NAME(LOC) 5S 1M; GLUCOSE,POINT OF CARE 127 MG/DL (70-110)
[2018-01-06 20:06] VITALS: BP 127/65
[2018-01-06 20:06] LABS: GLUCOMETER DEV NAME(LOC) 5S 1M; GLUCOSE,POINT OF CARE 362 MG/DL (70-110)
[2018-01-06] MEDS: INSULIN GLARGINE,HUM.REC.ANLOG 100 UNITS/ML SQ SCH (21:09)
[2018-01-06] MEDS: HYDROCODONE/ACETAMINOPHEN 5-325 MG TABLET PO PRN (23:52)
[2018-01-07] VITALS (7 sets, daily range): BP systolic 109–133; BP diastolic 65–89
[2018-01-07 01:04] LABS: GLUCOMETER DEV NAME(LOC) 5S 2Q; GLUCOSE,POINT OF CARE 373 MG/DL (70-110)
[2018-01-07 06:31] LABS: BASOPHILS % (AUTO) 0.1 % (0.0-2.0); EOSINOPHILS % (AUTO) 0.1 % (1.0-6.0); HEMATOCRIT 42.2 % (41-53); HEMOGLOBIN 13.5 g/dL (13.5-17.5); LYMPHOCYTES # (AUTO) 1.4 K/uL (1.0-4.8); LYMPHOCYTES % (AUTO) 9.1 % (22.0-44.0); MEAN CORPUSCULAR HGB CONC 32.1 G/dL (31.0-37.0); MEAN CORPUSCULAR VOLUME 87 fL (80-100); MONOCYTES # (AUTO) 0.7 K/uL (0.1-1.0); MONOCYTES % (AUTO) 4.5 % (2.0-9.0); NEUTROPHILS # (AUTO) 12.9 K/uL (1.8-7.7); PLATELET COUNT (AUTO) 163 K/uL (150-450); RED BLOOD CELL COUNT(AUTO) 4.83 MIL/uL (4.50-5.90); RED CELL DISTRIBUTION WIDTH 19.2 % (11.5-14.5)
[2018-01-07 06:35] LABS: NEUTROPHILS % (AUTO) 86.2 % (40.0-70.0)
[2018-01-07 07:10] LABS: ALBUMIN 2.6 g/dL (3.4-5.0); BILIRUBIN,TOTAL 1.3 mg/dL (0.1-1.0); CALCIUM, TOTAL 8.1 mg/dL (8.8-10.5); CREATININE 1.29 mg/dL (0.60-1.30); POTASSIUM 3.5 mmol/L (3.5-5.1); TOTAL PROTEIN, SERUM 5.3 g/dL (6.4-8.2)
[2018-01-07] MEDS: MAGNESIUM HYDROXIDE SUSPENSION 30 ML UDCUP PO PRN (08:11)
[2018-01-07] MEDS: DOCUSATE SODIUM 100 MG CAPSULE PO SCH ×2 (08:12→20:26)
[2018-01-07] MEDS: NICOTINE 21 MG/24 HOUR PATCH TD SCH (08:12)
[2018-01-07] MEDS: APIXABAN 2.5 MG TABLET PO SCH (08:12)
[2018-01-07] MEDS: PredniSONE 20 MG TABLET PO SCH (08:12)
[2018-01-07] MEDS: CARVEDILOL 12.5 MG TABLET PO SCH (08:12)
[2018-01-07] MEDS: MULTIVITAMINS WITH MINERALS, THERAPEUTIC TABLET PO SCH (08:12)
[2018-01-07] MEDS: FUROSEMIDE 40 MG/4 ML VIAL IVP SCH (08:13)
[2018-01-07] MEDS: AMIODARONE HCL 200 MG TABLET PO SCH ×3 (08:13→23:15)
[2018-01-07] MEDS: PANTOPRAZOLE SODIUM 40 MG DR TABLET PO SCH (08:13)
[2018-01-07] MEDS: INSULIN LISPRO 100 UNITS/ML SQ PRN ×3 (11:35→20:29)
[2018-01-07] MEDS: CefTRIAXone SODIUM 1 GM in DEXTROSE 5%-WATER 10 ML IV SCH (17:34)
[2018-01-07] MEDS: APIXABAN 5 MG TABLET PO SCH (20:26)
[2018-01-07] MEDS: INSULIN GLARGINE,HUM.REC.ANLOG 100 UNITS/ML SQ SCH (20:28)
[2018-01-07] MEDS: HYDROCODONE/ACETAMINOPHEN 5-325 MG TABLET PO PRN (20:34)
[2018-01-07 23:19] LABS: GLUCOMETER DEV NAME(LOC) 5S 1M; GLUCOSE,POINT OF CARE 240 MG/DL (70-110)
[2018-01-08 04:10] VITALS: BP 125/77
[2018-01-08] MEDS: INSULIN LISPRO 100 UNITS/ML SQ PRN ×4 (06:14→20:41)
[2018-01-08 06:54] LABS: BASOPHILS % (AUTO) 0.2 % (0.0-2.0); EOSINOPHILS % (AUTO) 0.2 % (1.0-6.0); HEMATOCRIT 41.9 % (41-53); HEMOGLOBIN 13.4 g/dL (13.5-17.5); LYMPHOCYTES # (AUTO) 1.2 K/uL (1.0-4.8); LYMPHOCYTES % (AUTO) 7.1 % (22.0-44.0); MEAN CORPUSCULAR HEMOGLOBIN 27.9 pg (26.0-34.0); MEAN CORPUSCULAR HGB CONC 31.9 G/dL (31.0-37.0); MEAN CORPUSCULAR VOLUME 87 fL (80-100); MONOCYTES # (AUTO) 0.6 K/uL (0.1-1.0); MONOCYTES % (AUTO) 3.7 % (2.0-9.0); NEUTROPHILS # (AUTO) 15.3 K/uL (1.8-7.7); PLATELET COUNT (AUTO) 138 K/uL (150-450); RED CELL DISTRIBUTION WIDTH 19.5 % (11.5-14.5)
[2018-01-08 06:55] LABS: ALANINE AMINOTRANSFERASE 51 U/L (12-78); ALBUMIN 2.4 g/dL (3.4-5.0); ALKALINE PHOSPHATASE 167 U/L (46-116); ANION GAP -1 mmol/L (8-16); ASPARTATE AMINOTRANSFERASE 32 U/L (15-37); BILIRUBIN,TOTAL 1.2 mg/dL (0.1-1.0); CALCIUM, TOTAL 8.1 mg/dL (8.8-10.5); CHLORIDE 100 mmol/L (98-107); GLOMERULAR FILTR. RATE CALC > 60 mL/min (>60); GLUCOSE,RANDOM 140 mg/dL (70-110); PHOSPHORUS 2.7 mg/dL (2.5-4.9); POTASSIUM 3.6 mmol/L (3.5-5.1); SODIUM SERUM 142 mmol/L (136-145); TOTAL PROTEIN, SERUM 5.1 g/dL (6.4-8.2); UREA NITROGEN, BLOOD 42 mg/dL (7-18)
[2018-01-08 07:01] LABS: NEUTROPHILS % (AUTO) 88.8 % (40.0-70.0)
[2018-01-08 07:02] LABS: CARBON DIOXIDE 43 mmol/L (22-29)
[2018-01-08 07:43] VITALS: BP 138/91
[2018-01-08] MEDS: MULTIVITAMINS WITH MINERALS, THERAPEUTIC TABLET PO SCH (08:50)
[2018-01-08] MEDS: PredniSONE 20 MG TABLET PO SCH (08:50)
[2018-01-08] MEDS: APIXABAN 5 MG TABLET PO SCH ×2 (08:50→20:39)
[2018-01-08] MEDS: CARVEDILOL 12.5 MG TABLET PO SCH (08:50)
[2018-01-08] MEDS: AMIODARONE HCL 200 MG TABLET PO SCH ×3 (08:50→23:52)
[2018-01-08] MEDS: NICOTINE 21 MG/24 HOUR PATCH TD SCH (08:51)
[2018-01-08] MEDS: PANTOPRAZOLE SODIUM 40 MG DR TABLET PO SCH (09:00)
[2018-01-08] MEDS: DOCUSATE SODIUM 100 MG CAPSULE PO SCH ×2 (09:00→20:39)
[2018-01-08] MEDS ORDERED: SODIUM CHLORIDE 0.9% 1,000 ML IV ONE ×2 (10:30→22:45)
[2018-01-08] MEDS ORDERED: MAGNESIUM SULFATE 2 GM/WATER 50 ML IV ONE (10:30)
[2018-01-08 11:56] VITALS: BP 121/72
[2018-01-08 16:32] VITALS: BP 128/70
[2018-01-08] MEDS: CefTRIAXone SODIUM 1 GM in DEXTROSE 5%-WATER 10 ML IV SCH (17:00)
[2018-01-08 20:07] VITALS: BP 125/66
[2018-01-08] MEDS: INSULIN GLARGINE,HUM.REC.ANLOG 100 UNITS/ML SQ SCH (20:40)
[2018-01-08 21:49] LABS: ANION GAP 2 mmol/L (8-16); CALCIUM, TOTAL 7.9 mg/dL (8.8-10.5); CARBON DIOXIDE 39 mmol/L (22-29); CHLORIDE 100 mmol/L (98-107); CREATININE 1.14 mg/dL (0.60-1.30); GLOMERULAR FILTR. RATE CALC > 60 mL/min (>60); GLUCOSE,RANDOM 216 mg/dL (70-110); POTASSIUM 3.7 mmol/L (3.5-5.1); SODIUM SERUM 141 mmol/L (136-145); UREA NITROGEN, BLOOD 39 mg/dL (7-18)
[2018-01-08 23:14] LABS: GLUCOMETER DEV NAME(LOC) 5N 1P; GLUCOSE,POINT OF CARE 246 MG/DL (70-110)
[2018-01-09 00:02] VITALS: BP 135/73
[2018-01-09 04:07] VITALS: BP 135/76
[2018-01-09 06:56] LABS: ALANINE AMINOTRANSFERASE 47 U/L (12-78); ALBUMIN 2.4 g/dL (3.4-5.0); ALKALINE PHOSPHATASE 190 U/L (46-116); ANION GAP 1 mmol/L (8-16); ASPARTATE AMINOTRANSFERASE 49 U/L (15-37); BILIRUBIN,TOTAL 1.2 mg/dL (0.1-1.0); CALCIUM, TOTAL 8.4 mg/dL (8.8-10.5); CARBON DIOXIDE 39 mmol/L (22-29); CHLORIDE 101 mmol/L (98-107); CREATININE 0.99 mg/dL (0.60-1.30); GLOMERULAR FILTR. RATE CALC > 60 mL/min (>60); GLUCOSE,RANDOM 87 mg/dL (70-110); POTASSIUM 4.3 mmol/L (3.5-5.1); SODIUM SERUM 141 mmol/L (136-145); TOTAL PROTEIN, SERUM 5.2 g/dL (6.4-8.2); UREA NITROGEN, BLOOD 35 mg/dL (7-18)
[2018-01-09 07:02] LABS: BASOPHILS % (AUTO) 0.4 % (0.0-2.0); EOSINOPHILS % (AUTO) 0.3 % (1.0-6.0); HEMATOCRIT 41.6 % (41-53); HEMOGLOBIN 13.3 g/dL (13.5-17.5); LYMPHOCYTES # (AUTO) 1.5 K/uL (1.0-4.8); LYMPHOCYTES % (AUTO) 9.2 % (22.0-44.0); MEAN CORPUSCULAR HEMOGLOBIN 27.7 pg (26.0-34.0); MEAN CORPUSCULAR VOLUME 87 fL (80-100); MONOCYTES # (AUTO) 0.8 K/uL (0.1-1.0); NEUTROPHILS # (AUTO) 13.5 K/uL (1.8-7.7); NEUTROPHILS % (AUTO) 85.1 % (40.0-70.0); PLATELET COUNT (AUTO) 137 K/uL (150-450); RED CELL DISTRIBUTION WIDTH 20.1 % (11.5-14.5)
[2018-01-09 07:34] VITALS: BP 117/72
[2018-01-09] MEDS: PANTOPRAZOLE SODIUM 40 MG DR TABLET PO SCH (09:00)
[2018-01-09] MEDS: APIXABAN 5 MG TABLET PO SCH (09:14)
[2018-01-09] MEDS: PredniSONE 20 MG TABLET PO SCH (09:14)
[2018-01-09] MEDS: MULTIVITAMINS WITH MINERALS, THERAPEUTIC TABLET PO SCH (09:14)
[2018-01-09] MEDS: AMIODARONE HCL 200 MG TABLET PO SCH (09:14)
[2018-01-09] MEDS: DOCUSATE SODIUM 100 MG CAPSULE PO SCH (09:14)
[2018-01-09] MEDS: CARVEDILOL 12.5 MG TABLET PO SCH (09:14)
[2018-01-09] MEDS: NICOTINE 21 MG/24 HOUR PATCH TD SCH (09:16)
[2018-01-09 11:10] VITALS: BP 138/82
[2018-01-09] MEDS: INSULIN LISPRO 100 UNITS/ML SQ PRN ×2 (12:29→18:01)
[2018-01-09 14:49] LABS: GLUCOMETER DEV NAME(LOC) 5N 2S; GLUCOSE,POINT OF CARE 136 MG/DL (70-110)
[2018-01-09 14:49] LABS: GLUCOMETER DEV NAME(LOC) 5N 2S; GLUCOSE,POINT OF CARE 246 MG/DL (70-110)
[2018-01-09 14:49] LABS: GLUCOMETER DEV NAME(LOC) 5N 2S; GLUCOSE,POINT OF CARE 155 MG/DL (70-110)
[2018-01-09 14:50] LABS: GLUCOMETER DEV NAME(LOC) 5N 2S; GLUCOSE,POINT OF CARE 101 MG/DL (70-110)
[2018-01-09 14:50] LABS: GLUCOMETER DEV NAME(LOC) 5S 2Q; GLUCOSE,POINT OF CARE 153 MG/DL (70-110)
[2018-01-09 14:50] LABS: GLUCOMETER DEV NAME(LOC) 5S 1M; GLUCOSE,POINT OF CARE 228 MG/DL (70-110)
[2018-01-09 14:50] LABS: GLUCOMETER DEV NAME(LOC) 5N 2S; GLUCOSE,POINT OF CARE 227 MG/DL (70-110)
[2018-01-09 14:51] LABS: GLUCOMETER DEV NAME(LOC) 5N 2S; GLUCOSE,POINT OF CARE 182 MG/DL (70-110)
[2018-01-09 16:07] VITALS: BP 124/69
[2018-01-09] MEDS ORDERED: AMIO200T44 PO (16:37)
[2018-01-09] MEDS ORDERED: CARV12 PO (16:38)
[2018-01-09] MEDS ORDERED: APIX5TAB PO (16:38)
[2018-01-09] MEDS ORDERED: DSS100 PO (16:38)
[2018-01-09] MEDS ORDERED: NICO-802 TD (16:40)
[2018-01-09] MEDS ORDERED: INSLAN SQ (16:40)
[2018-01-09] MEDS ORDERED: MULT-1239 PO (16:40)
[2018-01-09] MEDS ORDERED: PANT40TA25 PO (16:42)
[2018-01-09] MEDS ORDERED: ACET-784 PO (16:44)
[2018-01-09] MEDS ORDERED: AUD NEB (16:52)
[2018-01-09] MEDS ORDERED: BISA5TAB12 PO (16:53)
[2018-01-09] MEDS ORDERED: GUAIF10 PO (16:55)
[2018-01-09] MEDS ORDERED: MOM30 PO (16:56)
[2018-01-09] MEDS ORDERED: ONDA220I IV (16:57)
[2018-01-09] MEDS ORDERED: AMIODARONE HCL 200 MG TABLET PO SCH (21:00)
[2018-01-10 11:30] LABS: GLUCOMETER DEV NAME(LOC) 5N 1P; GLUCOSE,POINT OF CARE 235 MG/DL (70-110)
== END 2018-01-09 19:40 | DRG 682 ==
LOC: EMS 13:47 → 5N 19:54 → 6N 19:55 → UNDOADMIN 19:55 → ICU 12-26 02:44 → 5S 12-28 10:25 → 5N 01-08 22:45
PROVIDERS: ADMIT Internal Medicine; ATTEND Internal Medicine
PROC: 05HY33Z Insertion of Infusion Device into Upper Vein, Percutaneous Approach (ICD-10-PCS; 2017-12-26)
PROC: B54MZZA Ultrasonography of Right Upper Extremity Veins, Guidance (ICD-10-PCS; 2017-12-26)
PROC: 06HM33Z Insertion of Infusion Device into Right Femoral Vein, Percutaneous Approach (ICD-10-PCS; principal; 2017-12-27)
PROC: B54BZZA Ultrasonography of Right Lower Extremity Veins, Guidance (ICD-10-PCS; 2017-12-27)
PROC: 5A1D70Z Performance of Urinary Filtration, Intermittent, Less than 6 Hours Per Day (ICD-10-PCS; 2017-12-28)
PROC: 5A1D70Z Performance of Urinary Filtration, Intermittent, Less than 6 Hours Per Day (ICD-10-PCS; 2017-12-28)
PROC: 5A09357 Assistance with Respiratory Ventilation, Less than 24 Consecutive Hours, Continuous Positive Airway Pressure (ICD-10-PCS; 2018-01-01)
PROC: 5A09457 Assistance with Respiratory Ventilation, 24-96 Consecutive Hours, Continuous Positive Airway Pressure (ICD-10-PCS; 2018-01-02)
DX: N17.0 Acute kidney failure with tubular necrosis (principal); G92 Toxic encephalopathy; I50.23 Acute on chronic systolic (congestive) heart failure; I13.0 Hypertensive heart and chronic kidney disease with heart failure and stage 1 through stage 4 chronic kidney disease, or unspecified chronic kidney disease; E87.0 Hyperosmolality and hypernatremia; J44.1 Chronic obstructive pulmonary disease with (acute) exacerbation; R45.851 Suicidal ideations; E66.2 Morbid (severe) obesity with alveolar hypoventilation; E87.4 Mixed disorder of acid-base balance; I48.92 Unspecified atrial flutter; N39.0 Urinary tract infection, site not specified; I47.1 Supraventricular tachycardia; F10.239 Alcohol dependence with withdrawal, unspecified; I42.9 Cardiomyopathy, unspecified; I48.91 Unspecified atrial fibrillation; E87.6 Hypokalemia; E83.42 Hypomagnesemia; R09.02 Hypoxemia; B96.4 Proteus (mirabilis) (morganii) as the cause of diseases classified elsewhere; D64.9 Anemia, unspecified; E11.22 Type 2 diabetes mellitus with diabetic chronic kidney disease; E11.65 Type 2 diabetes mellitus with hyperglycemia; E78.00 Pure hypercholesterolemia, unspecified; E87.5 Hyperkalemia; F20.9 Schizophrenia, unspecified; I37.1 Nonrheumatic pulmonary valve insufficiency; I44.0 Atrioventricular block, first degree; I51.3 Intracardiac thrombosis, not elsewhere classified; K76.0 Fatty (change of) liver, not elsewhere classified; N18.9 Chronic kidney disease, unspecified; Z79.01 Long term (current) use of anticoagulants; Z79.899 Other long term (current) drug therapy; Z68.33 Body mass index [BMI] 33.0-33.9, adult
CPT/HCPCS: 36245; 76700; 76937; 82043; 82271; 82570; 82784; 82805; 83036; 83516; 83735; 83874; 84100; 84132; 84155; 84156; 84165; 84166; 84300; 86038; 86160; 86334; 86803; 87081; 87086; 87340; 93005; 93306; 94640; 94660; 96374; 96375; 97163; 97530; 99285; G0480; J0282; J0610; J0696; J1160; J1630; J1644; J1815; J1940; J2060; J2270; J2370; J2405; J2920; J2930; J3475; J3480; J3490; J7030; J7050; J7060; P9046

== ENCOUNTER 2018-01-16 20:43 | Emergency (ER) | payer MEDICARE, OTHER ==
[~2018-01-16] VITALS: Ht 172.7 cm; Wt 100.2 kg
[~2018-01-16 20:43] MED LIST changes: +ACET-784 PO; +AMIO200T44 PO; +APIX5TAB PO; -ASPI1POW MC; +AUD NEB; +BISA5TAB12 PO; +CARV12 PO; -CLON-570 PO; +DSS100 PO; +FURO20 PO; +GUAIF10 PO; +INSLAN SQ; +METO-558 PO; +MOM30 PO; +MULT-1239 PO; +NICO-802 TD; +ONDA220I IV; +PANT40TA25 PO; -SIMV5TAB6 PO
[2018-01-16 21:13] LABS: GLUCOSE,POINT OF CARE 152 MG/DL (70-110)
[2018-01-16 23:40] VITALS: BP 142/88
== END 2018-01-17 | disposition home or self-care (01) ==
LOC: EMS 20:44
DX: I11.0 Hypertensive heart disease with heart failure (principal); I50.9 Heart failure, unspecified; E78.00 Pure hypercholesterolemia, unspecified; F20.9 Schizophrenia, unspecified; Z79.4 Long term (current) use of insulin; Z79.891 Long term (current) use of opiate analgesic; Z79.899 Other long term (current) drug therapy; Z79.01 Long term (current) use of anticoagulants
CPT/HCPCS: 99283